=== PATIENT | female | born 1950 | race Caucasian/White ===

== ENCOUNTER 2016-07-10 16:28 | Emergency (ER) | payer MEDICARE, OTHER ==
[~2016-07-10 16:28] MED LIST: ASAB PO; BEN25 PO; CITRACAL PO; CO Q-10200 MG PO; DOXYCYCLINE HYCLATE PO; ESTRACE1 MG PO; FISH-EPA1000 MG PO; GLUCCHONDR PO; MOBIC15 MG PO; NEXIUM40 PO; P20 PO; PRAVACHOL40 MG PO; PYRID180 PO; SM FLAX SEED1000 MG PO; T PO; VITAMIN D1000 UNI1 PO; VITC500 PO; VITE PO; ZYRTEC ALLGY10 MG PO
== END 2016-07-10 19:24 | disposition home or self-care (01) ==
LOC: ER 16:28
PROC: 0HQ0XZZ Repair Scalp Skin, External Approach (ICD-10-PCS; principal; 2016-07-10)
DX: S01.01XA Laceration without foreign body of scalp, initial encounter (principal); S16.1XXA Strain of muscle, fascia and tendon at neck level, initial encounter; Z88.2 Allergy status to sulfonamides; Z88.1 Allergy status to other antibiotic agents; Z79.52 Long term (current) use of systemic steroids; Z79.899 Other long term (current) drug therapy; Z79.82 Long term (current) use of aspirin; W19.XXXA Unspecified fall, initial encounter
CPT/HCPCS: 70450; 72125; 73560-LT; 90471; 90714; 99284; A9270-GY